=== PATIENT | female | born 1970 | race Hispanic/Latino ===

== ENCOUNTER 2017-10-04 15:00 | Outpatient (RCR) | payer OTHER ==
[~2017-10-04 15:00] MED LIST: HYDROCHLOROTHIA25 MG PO; NIFEDIPINE10 MG PO; NORCO 5-325 TA1 EACH PO
== END 2017-10-16 ==
LOC: PT 15:00
PROVIDERS: ATTEND Neurological Surgery
DX: M50.122 Cervical disc disorder at C5-C6 level with radiculopathy (principal)

== ENCOUNTER 2018-01-02 18:01 | Emergency (ER) | payer OTHER ==
[~2018-01-02] VITALS: Ht 162.6 cm; Wt 106.1 kg
--- OUTSIDE RECORDS SUMMARY | 2018-01-02 18:04 | XMS REPORT ---
Author [facility] Address Unknown Phone Unavailable Care Team Providers Care National Sales Representative Name Role Phone DEE DEE JEFFERY Unavailable Unavailable Problems This patient has no known problems. Allergies, Adverse Reactions, Alerts This patient has no known allergies or adverse reactions. Medications This patient has no known medications. Results Test Description Test Time Test Comments Text Results Atomic Results Result Comments C-SPINE 2 VIEWS AP LATERAL [place] [address] Patient Name: SARA CHARLES MR #: [id number] : 1970 Age/Sex: 46/F Req #: [id number] [facility] Physician: DEE DEE JEFFERY MD Ordered by : DEE DEE JEFFERY MD Report #: [id number] Location: [facility] Room/Bed: [place] [address] Procedure: [id number] DX/C-SPINE 2 VIEWS AP LATERAL Exam Date: 07/01/17 Exam Time: 0609 REPORT STATUS: Signed Cervical Spine Two Views CPT code: 64966 Indication: Postop Technique: AP and lateral views of cervical spine obtained. Comparison: None Findings: Lateral images mildly motion degraded. Despite this, the cervical vertebral bodies can be visualized to the level of C7. The alignment is anatomic. Anterior cervical plate and artificial disc has been placed at C5-6. The hardware is intact. No fracture associated with hardware placement. There is disc space narrowing and endplate osteophytic lipping of C4-5. The facets and spinous processes are normally aligned. There is exuberant prevertebral soft tissue swelling. No evidence of air. Alignment maintained on AP image. Skull base and upper chest are unremarkable. IMPRESSION: Status post ACDF of C5-6. No malalignment or postoperative complication. Untreated degenerative disc disease at C4-5. Signed by: Dr. Lolita Wilson MD on 07/01/2017 12:46 PM Dictated By: LOLITA WILSON MD 1246 Transcribed By: SUBHA on 07/01/17 1246 COPY TO: DEE DEE JEFFERY MD CHEST 2 VIEWS [place] [address] Patient Name: SARA CHARLES MR #: [id number] : 1970 Age/Sex: 46/F Req #: [id number] Adm Physician: Ordered by: DEE DEE JEFFERY MD Report #: [id number] Location: OR Room/Bed: Procedure: [id number] DX/CHEST 2 VIEWS Exam Date: 06/29/17 Exam Time: 1200 REPORT STATUS: Signed PROCEDURE: Frontal and lateral views of the chest. COMPARISON: None. INDICATIONS: PRE OP FINDINGS: Lines/tubes: None. Lungs: The lungs are well inflated and clear. There is no evidence of pneumonia or pulmonary edema. Pleura: There is no pleural effusion or pneumothorax. Heart and mediastinum: The heart and the mediastinum are normal. Bones: No acute bony abnormality. IMPRESSION: 1. No acute cardiopulmonary abnormalities. Marlen Flores M.D. Dictated by: Marlen Flores M.D. on 06/29/2017 at 12:48 Electronically approved by: Marlen Flores M.D. on 2016 at 12:48 Dictated By: MARLEN FLORES MD 1248 Transcribed By: JACKELYN on 1248 COPY TO: DEE DEE JEFFERY MD
[2018-01-02] MEDS ORDERED: KETOROLAC TROMETHAMINE 60 MG/2 ML VIAL IM ONE (18:45)
[2018-01-02] MEDS ORDERED: HYDROCODONE/APAP 10MG-325MG TAB PO ONE (18:45)
[2018-01-02] MEDS ORDERED: CYCLOBENZAPRINE HCL 10 MG TAB PO ONE (18:45)
[2018-01-02] MEDS ORDERED: KETOROLAC TROMETHAMINE 60 MG/2 ML VIAL ONE (18:53)
[2018-01-02 19:22] VITALS: BP 136/79
== END 2018-01-02 19:31 | disposition home or self-care (01) ==
LOC: ER 18:01
DX: M54.5 Low back pain (principal)
CPT/HCPCS: 99282; J1885